=== PATIENT | male | born 1990 | race Caucasian/White ===

== ENCOUNTER 2017-04-19 13:39 | Emergency (ER) | payer BC ==
[~2017-04-19] VITALS: Ht 190.5 cm; Wt 109.1 kg
[2017-04-19 14:17] VITALS: BP 133/92
== END 2017-04-19 15:17 | disposition home or self-care (01) ==
LOC: EMS 13:40
DX: J06.9 Acute upper respiratory infection, unspecified (principal)
CPT/HCPCS: 99282